=== PATIENT | female | born 1960 | race Caucasian/White ===

== ENCOUNTER 2016-08-27 19:32 | Emergency (ER) | payer OTHER ==
--- NOTE | ~2016-08-27 | EKG ---
PATIENT: ECHO JIMENES UNIT #: [id number] Ventricular Rate: 62 BPM Atrial Rate: 62 BPM P-R Interval: 152 ms QRS Duration: 86 ms Q-T Interval: 390 ms QTC Calculation(Bezet): 395 ms P Doerun: 45 degrees Calculated R Doerun: 9 degrees Calculated T Doerun: 25 degrees Diagnosis Line: Normal sinus rhythm Diagnosis Line: Normal ECG Diagnosis Line: No previous ECGs available Diagnosis Line: Confirmed by EMILY BERNABE MD ([id number]) on 08/28/2016 Diagnosis Line: 5:06:37 AM INTERPRETING MD: FLORECITA ROUSE
--- NOTE | ~2016-08-27 | CR63 ---
[facility] A Service of [facility] RADIOLOGY TEXT RESULTS PATIENT: ECHO JIMENES LOCATION: [place] : 62 UNIT #: [id number] AGE: [address]: Mikhail Bourne SEX: F ORDER DR: [id number] [facility] [address]. [place], [place] [address] [id number] MR#: [id number] Acc #: [id number] NAME: ECHO JIMENES : 1960 SEX: F STUDY DATE/TIME: 08/27/2016 20:10 UNIT: CFTX ROOM: STUDY DESCRIPTION: CR Chest 2 View Attending Physician: Mikhail Bourne P.A.-C. Ordering Physician: Becyk Linder P.A.-C. Primary Care Physician: Angelic Rome M.D. MEDICAL IMAGING REPORT This report is preliminary unless electronic signature is present EXAM Chest 2 views 08/27/2016 INDICATIONS Cough, congestion, fever, short of air. Symptoms since August 11. Tobacco abuse 30 years. Asthma, bronchitis. TECHNIQUE 2 views of the chest were performed. COMPARISON 05/09/2015. FINDINGS Cardiac silhouette is within normal limits. The vascularity is unremarkable. Lung volumes are low. There is band-like density in the right lung base on the frontal view and there is dense consolidation in what is probably the right lower lobe on the lateral projection. Imaging features are most characteristic of pneumonia. Follow up to clearing after appropriate therapy is recommended. No pneumothorax or significant effusion. IMPRESSION 1. Findings most characteristic of right lower lobe pneumonia. Follow up to clearing after appropriate therapy is recommended. STAT * RESULT Dictated by... Bruce Roberts M.D. [facility] A Service of [facility] RADIOLOGY TEXT RESULTS PATIENT: ECHO JIMENES LOCATION: [place] : 62 UNIT #: [id number] AGE: [address]: Mikhail Bourne SEX: F ORDER DR: THIS IS AN ELECTRONICALLY VERIFIED REPORT Bruce Roberts M.D. at 08/27/2016 10:24 PM RUBIO/damian TD: 08/27/2016 20:41 JOB #: [id number] MEDICAL IMAGING REPORT Page 1 of 1 COPY
[~2016-08-27 19:32] MED LIST: ACETAMINOPHEN PR; ALBUTEROL 0.5ML INH; ALBUTEROL17 GM INH; CELEBREX PO; COLACE PO; CYMBALTA PO; DEPOMEDROL; FAMOTIDINE PO; KLONOPIN PO; LASIX PO; LOPRESSOR PO; MORPHINE IR PO; NILSTAT PO; PERCOCET10 PO; PREDNISONE PO; PROZAC PO; SYMBICORT INH; TOPROL XL PO; ZITHROMAX PO
[2016-08-27 20:07] LABS: BASOPHIL# 0.1 X10e3 (0-0.3); EOSINOPHIL# 0.1 X10e3 (0-0.7); EOSINOPHIL% 1.1 % (0.0-7.0); HEMATOCRIT 37.8 % (35.0-45.0); HEMOGLOBIN 12.4 gm/dL (12.0-16.0); LYMPHOCYTE# 1.5 X10e3 (1.0-3.5); LYMPHOCYTE% 17.7 % (17.0-45.0); MEAN CELL VOLUME 89.6 FL (83-96); MEAN CORPUSCULAR HEMOGLOBIN 29.4 PG (28-34); MEAN CORPUSCULAR HGB CONC 32.8 g/dL (30-36); MEAN PLATELET VOLUME 7.7 FL (6.5-11.5); MONOCYTE# 0.5 X10e3 (0-1.0); MONOCYTE% 6.4 % (3.0-12.0); NEUTROPHIL# 6.2 X10e3 (1.5-7.1); NEUTROPHIL% 73.8 % (40-75); PLATELET COUNT 338 X10e3 (140-420); RED BLOOD COUNT 4.22 X10e (3.90-5.30); RED CELL DISTRIBUTION WIDTH 14.2 % (11.0-15.5); WHITE BLOOD COUNT 8.4 X10e3 (4.0-10.5)
[2016-08-27 20:08] LABS: DIFF IND NO
[2016-08-27 20:46] LABS: BUN/CREATININE RATIO 15.71; CALCIUM SERUM 9.1 mg/dL (8.4-10.2); CREATININE SERUM 0.7 mg/dL (0.6-1.4); GLOM FILT RATE Estimated 97.5 mL/min (>60); POTASSIUM 4.2 mmol/L (3.5-5.1)
[2016-08-27 21:21] LABS: POC - CKMB 2.1 ng/mL (0.0-7.9); POC - TROPONIN <0.05 ng/mL (<=0.05)
== END 2016-08-27 22:19 | disposition home or self-care (01) ==
LOC: CFTX 19:32
PROVIDERS: Physician Assistant
DX: J18.9 Pneumonia, unspecified organism (principal); F17.210 Nicotine dependence, cigarettes, uncomplicated; Z98.51 Tubal ligation status; Z88.1 Allergy status to other antibiotic agents
CPT/HCPCS: 71020; 80048; 82553; 84484; 85025; 93005; 94640; 96361; 96365; 99284; J0696